=== PATIENT | male | born 2000 | race Caucasian/White ===

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

== ENCOUNTER 2021-03-15 20:28 | Emergency (ER) | payer OTHER ==
[~2021-03-15] VITALS: Ht 182.9 cm; Wt 79.4 kg
[2021-03-15 20:28] VITALS: BP 126/62
--- NOTE | 2021-03-15 21:07 | PHYS DOC ---
General Adult EDM: Chief Complaint: FINGER INJURY HPI: HPI: Patient is a 20-year-old male who presents to the emergency department for a laceration to his right index finger that occurred when he cut it on a can today. Patient denies any pain. He is unsure of his last tetanus shot. Patient denies any decreased range of motion or decreased sensation to his finger. (JADA BELTRAN APRN) Review of Systems: Review of Systems: Musculoskeletal: See HPI Integument: See HPI Neurologic: See HPI (JADA BELTRAN APRN) Physical Exam: PE: Constitutional: Well developed, well nourished, no acute distress, non-toxic appearance. [] HENT: Normocephalic, atraumatic, bilateral external ears normal, oropharynx moist, no oral exudates, nose normal. [] Eyes: PERRL, EOMI, conjunctiva normal, no discharge. [] Neck: Normal range of motion, no stridor Cardiovascular: Normal peripheral perfusion Lungs & Thorax: Normal work of breathing, no tachypnea Abdomen: Soft and flat Skin: Warm, dry, no erythema, no rash. [] Back: Normal range of motion Extremities: No tenderness, no cyanosis, no clubbing, ROM intact, no edema. [] Right second finger: Superficial 1 cm C-shaped laceration noted to the dorsal aspect of his finger proximal to his PIP joint, no active bleeding, no foreign bodies visible, no tendon involvement, range of motion intact, neuro intact, easily approximated Neurologic: Alert and oriented X 3, normal motor function, normal sensory fun ction, no focal deficits noted. [] Psychologic: Affect normal, judgement normal, mood normal. [] (JADA BELTRAN APRN) EKG: EKG: [] (JADA BELTRAN APRN) Radiology/Procedures: Radiology/Procedures: [] (JADA BELTRAN APRN) Heart Score: C/O Chest Pain: N/A Risk Factors: Risk Factors: DM, Current or recent (<one month) smoker, HTN, HLP, family history of CAD, obesity. Risk Scores: Score 0 - 3: 2.5% MACE over next 6 weeks - Discharge Home Score 4 - 6: 20.3% MACE over next 6 weeks - Admit for Clinical Observation Score 7 - 10: 72.7% MACE over next 6 weeks - Early Invasive Strategies (JADA BELTRAN APRN) Course & Med Decision Making: Course & Med Decision Making Pertinent Labs and Imaging studies reviewed. (See chart for details) [] Patient resents the emergency department for a laceration to his index finger. The laceration is superficial. There does not appear to be any tendon involvement or foreign bodies. Range of motion intact, neuro intact. Laceration was cleansed with saline wound wash and it was closed with Dermabond. Steri-Strips were placed. Patient's finger placed in a splint. Patient is unsure of when his last tetanus was so this was updated in the emergency department. Patient educated on wound care. I discussed with patient all findings and diagnostic testing as well as the need to follow-up with PCP for further evaluation and treatment or return to the ER if any new or worsening symptoms. Strict return precautions were also discussed at length. Patient voiced understanding and agreement with the plan. Patient is hemodynamically stable at the time of disposition.. (JADA BELTRAN APRN) Dragon Disclaimer: Dragon Disclaimer: This electronic medical record was generated, in whole or in part, using a voice recognition dictation system. (JADA BELTRAN APRN) Departure Departure: Impression: Primary Impression: Laceration Disposition: 01 HOME / SELF CARE / HOMELESS Condition: GOOD Referrals: PCP,KEILY (PCP) Patient Instructions: Laceration Care, Adult Additional Instructions: You are seen in the emergency department today for a laceration to your finger which was repaired with skin glue and Steri-Strips. Please keep your laceration clean and dry. Do not submerge your hand in any water for 2 to 3 days. You can take Tylenol and ibuprofen for your pain. Your tetanus was updated today. Please continue to wear the splint on your finger for at least a week. Monitor for any signs of infection which include redness, warmth, swelling or drainage. Follow-up with your primary care provider within a week. Return to the emergency department if you develop any signs of infection, increased pain to your finger, decreased range of motion or decreased sensation. Attending Signature Attending Signature I have participated in the care of this patient and I have reviewed and agree with all pertinent clinical information above including history, exam, and recommendations. (HOLA MINER MD) Dragon Disclaimer This chart was dictated in whole or in part using Voice Recognition software in a busy, high-work load, and often noisy Emergency Department environment. It may contain unintended and wholly unrecognized errors or omissions. (HOLA MINER MD) JADA BELTRAN APRN Mar 15, 2021 21:07 HOLA MINER MD Mar 17, 2021 02:51
[2021-03-15] MEDS ORDERED: DIPHTH,PERTUSS(ACELL),TET TOX 0.5 ML DISP.SYRIN. VAX IM ONE (22:00)
== END 2021-03-15 21:45 | disposition home or self-care (01) ==
LOC: ER 20:28
DX: S61.210A Laceration without foreign body of right index finger without damage to nail, initial encounter (principal); W26.8XXA Contact with other sharp object(s), not elsewhere classified, initial encounter; Y93.89 Activity, other specified; Y92.89 Other specified places as the place of occurrence of the external cause; Y99.8 Other external cause status
CPT/HCPCS: 12001; 90471; 90715; 99283